=== PATIENT | female | born 1980 | race Hispanic/Latino ===

== ENCOUNTER 2018-10-28 19:38 | Emergency (ER) | payer OTHER ==
[2018-10-28] MEDS ORDERED: DiphenhydrAMINE HCL 50 MG/ML VIAL ONE (20:52)
[2018-10-28] MEDS ORDERED: ONDANSETRON ODT 4 MG TAB ONE (20:53)
[2018-10-28] MEDS ORDERED: KETOROLAC TROMETHAMINE 30MG/ML ONE (21:06)
== END 2018-10-28 22:07 | disposition home or self-care (01) ==
LOC: EDH 19:38
DX: G43.909 Migraine, unspecified, not intractable, without status migrainosus (principal); E07.9 Disorder of thyroid, unspecified
CPT/HCPCS: 81025; 96372 ×2; 99284; J1200; J1885

== ENCOUNTER 2023-11-08 11:28 | Emergency (ER) | payer OTHER ==
[~2023-11-08] VITALS: Ht 157.5 cm; Wt 80.7 kg
[2023-11-08] MEDS: CYCLOBENZAPRINE HCL 10 MG TABLET PO ONE (12:43)
[2023-11-08] MEDS: HYDROcodone/APAP 5/325 1 TAB TABLET PO ONE (12:43)
[2023-11-08] MEDS: ondanSETRON ODT 4MG TAB SL ONE (12:43)
[2023-11-08] MEDS: ketOROlac 60 MG VIAL (30MG/ML) IM ONE (12:44)
[2023-11-08] MEDS ORDERED: BUTA-271 PO (13:00)
[2023-11-08 13:21] VITALS: BP 141/88; PULSE 80; RESP 18; TEMP 98.1; O2SAT 99
== END 2023-11-08 13:30 | disposition home or self-care (01) ==
LOC: EDH 11:28
DX: G44.209 Tension-type headache, unspecified, not intractable (principal); G43.909 Migraine, unspecified, not intractable, without status migrainosus
CPT/HCPCS: 99284; 96372; J1885